=== PATIENT | male | born 1990 | race African-American/Black ===

== ENCOUNTER 2019-08-21 10:31 | Outpatient (CLI) | payer OTHER ==
--- NOTE | 2019-08-21 10:49 | RAD ---
XR Hand Rt 3 View STANDARD History: Fracture follow-up Comparison: None. Findings: Flexion deformity proximal interphalangeal joint small finger. There is narrowing of the pr oximal phalangeal joint. Appears be an old fracture of the middle phalanx small finger. No acute superimposed fracture or malalignment. Impression: Flexion deformity proximal phalangeal joint small finger with narrowed proximal interphal angeal joint and appearance of a healed middle phalanx fracture.
== END 2019-08-21 10:32 | disposition home or self-care (01) ==
LOC: RAD-FRANK 10:31
PROVIDERS: ATTEND Nurse Practitioner Family
DX: M79.671 Pain in right foot (principal); M20.001 Unspecified deformity of right finger(s)

== ENCOUNTER 2021-07-03 08:27 | Outpatient (CLI) | payer OTHER | END 2021-07-03 08:28 | disposition home or self-care (01) | LOC: RAD-FRANK 08:27 | PROVIDERS: ATTEND Nurse Practitioner Family | DX: M79.671 Pain in right foot (principal); S92.321A Displaced fracture of second metatarsal bone, right foot, initial encounter for closed fracture; S92.331A Displaced fracture of third metatarsal bone, right foot, initial encounter for closed fracture ==

== ENCOUNTER 2021-11-25 04:33 | Emergency (ER) | payer MEDICARE, MEDICAID ==
[2021-11-25 05:36] LABS: #Basophils 0.1 thou/uL (0.0-0.2); #Eosinphils 0.1 thou/uL (0.0-0.7); #Lymphocytes 2.3 thou/uL (1.20-3.40); #Monocytes 0.8 thou/uL (0.11-0.59); %Basophils 0.9 % (0.0-1.0); %Eosinophils 1.8 % (0.0-10.0); %Lymphocytes 31.5 % (21.0-51.0); %Monocytes 10.4 % (0.0-10.0); %Neutrophils 55.4 % (42.0-75.0); Hemoglobin 13.2 g/dL (14.0-18.0); Mean Corpuscular HGB CONC 33.8 g/dL (32.0-36.0); Mean Corpuscular Hemoglobin 31.2 pg (27.0-31.0); Mean Corpuscular Volume 92.3 fL (78.0-98.0); Mean Platelet Volume 7.2 fL (7.4-10.4); Platelet Count 221 thou/uL (130-400); RBC Distribution Width 12.8 % (11.5-14.5); Red Blood Cell (RBC) Count 4.23 mill/uL (4.70-6.10); White Blood Cell (WBC) Count 7.2 thou/uL (4.8-10.8)
[2021-11-25 05:55] LABS: ALT (SGPT) 35 U/L (8-55); AST (SGOT) 41 U/L (5-34); Alkaline Phosphatase 69 U/L (40-110); Anion Gap 14 mmol/L (10-20); BUN (Urea Nitrogen) 9 mg/dL (8.9-20.6); Bilirubin, Total 0.4 mg/dL (0.2-1.2); Calc. Creatinine Clearance 0 mL/min (70-130); Calcium 9.3 mg/dL (7.8-10.44); Carbon Dioxide 27 mmol/L (22-29); Chloride 99 mmol/L (98-107); Globulin 3.9 g/dL (2.4-3.5); Glucose 96 mg/dL (70-105); Potassium 4.1 mmol/L (3.5-5.1); Protein, Total 7.9 g/dL (6.0-8.3); Sodium 136 mmol/L (136-145)
== END 2021-11-25 06:41 | disposition home or self-care (01) ==
LOC: ERS 04:33
DX: S09.90XA Unspecified injury of head, initial encounter (principal); R55 Syncope and collapse; E11.9 Type 2 diabetes mellitus without complications; K21.9 Gastro-esophageal reflux disease without esophagitis; X58.XXXA Exposure to other specified factors, initial encounter
CPT/HCPCS: 36416; 70450; 71045; 72125; 80053; 84484; 85025; 93005

== ENCOUNTER 2025-08-06 15:55 | Emergency (ER) | payer OTHER ==
[2025-08-06 16:16] LABS: #Basophils Less than 0.03 10x3/uL (0.0-0.2); #Eosinophils 0.06 10x3/uL (0.0-0.7); #Monocytes 0.30 10x3/uL (0.11-0.59); #Neutrophils 1.55 10x3/uL (1.40-6.50); %Basophils 0.3 % (0.0-1.0); %Eosinophils 1.8 % (0.0-10.0); %Lymphocytes 40.9 % (21.0-51.0); %Monocytes 9.2 % (0.0-10.0); %Neutrophils 47.8 % (42.0-75.0); Hematocrit 36.7 % (42.0-52.0); Hemoglobin 12.3 g/dL (14.0-18.0); Mean Corpuscular Hemoglobin 29.5 pg (27.0-31.0); Mean Corpuscular Volume 88.0 fL (78.0-98.0); Platelet Count 212 10x3/uL (130-400); Red Blood Cell (RBC) Count 4.17 mill/uL (4.70-6.10); White Blood Cell (WBC) Count 3.25 10x3/uL (4.8-10.8)
[2025-08-06 16:45] LABS: ALT (SGPT) 11 U/L (Less than 45); AST (SGOT) 31 U/L (11-34); Albumin 3.7 g/dL (3.1-4.5); Alkaline Phosphatase 60 U/L (40-110); Anion Gap 10 mmol/L (10-20); BUN (Urea Nitrogen) 9 mg/dL (8.9-20.6); Bilirubin, Total 0.4 mg/dL (0.3-1.2); Calc. Creatinine Clearance 0 mL/min (70-130); Calcium 9.1 mg/dL (7.8-10.44); Carbon Dioxide 29 mmol/L (22-29); Chloride 103 mmol/L (98-107); Globulin 3.7 g/dL (2.4-3.5); Glucose 100 mg/dL (70-105); Potassium 4.3 mmol/L (3.5-5.1); Sodium 138 mmol/L (136-145)
== END 2025-08-06 17:51 | disposition home or self-care (01) ==
LOC: ERS 15:55
DX: S01.81XA Laceration without foreign body of other part of head, initial encounter (principal); S01.111A Laceration without foreign body of right eyelid and periocular area, initial encounter; R55 Syncope and collapse; W22.8XXA Striking against or struck by other objects, initial encounter
CPT/HCPCS: 12011; 70450; 71045; 72125; 80053; 84484; 85025; 93005